=== PATIENT | female | born 1990 | race Caucasian/White ===

== ENCOUNTER 2016-11-25 21:04 | Emergency (ER) | payer SELFPAY ==
[~2016-11-25] VITALS: Ht 152.4 cm; Wt 112.0 kg
[2016-11-25] MEDS ORDERED: IBUPROFEN 600 MG TABLET PO ONE (23:15)
[2016-11-25 23:51] VITALS: BP 126/79
== END 2016-11-25 23:48 | disposition home or self-care (01) ==
LOC: EMS 21:05
DX: S93.602A Unspecified sprain of left foot, initial encounter (principal); S90.32XA Contusion of left foot, initial encounter; X58.XXXA Exposure to other specified factors, initial encounter; Y93.66 Activity, soccer; Y92.89 Other specified places as the place of occurrence of the external cause; Y99.8 Other external cause status
CPT/HCPCS: 81025; 99284